=== PATIENT | female | born 2000 | race Caucasian/White ===

== ENCOUNTER 2023-01-20 11:12 | Emergency (ER) | payer SELFPAY ==
[~2023-01-20] VITALS: Ht 170.2 cm; Wt 131.5 kg
--- NOTE | 2023-01-20 12:07 | ED Lower Extremity ---
General Chief Complaint: Lower Extremity Stated Complaint: LEFT ANKLE INJ Nursing Triage Note: PT AMBULATE TO TRIAGE WITHOUT DIFFICULTY WITH C/O LEFT ANKLE PAIN. PT REPORTS SHE WAS WALKING OUT OF A BAR AND ROLLED HER ANKLE AND FELL. PT REPORTS TAKING NAPROXEN FOR PAIN. PT STATES SHE THINKS SHE SPRAINED HER LEFT ANKLE. Source: patient Exam Limitations: no limitations History of Present Illness Date Seen by Provider: Jan 20, 2023 Time Seen by Provider: 12:03 Past Huuzutp-[id number]-Xfiefn Hx Patient Social History Tobacco Use?: No Smoking Status: Never a Smoker Smokeless Tobacco Frequency: Never a User Use of E-Cig and/or Vaping dev: No Use of E-Cig and/or Vaping Jared: Never a User Substance use?: Yes Substance type: Marijuana Substance frequency: Once in a while Alcohol Use?: Yes Alcohol Frequency: Once in a while Pt feels they are or have been: No Physical Exam Vital Signs Vital Signs - First Documented 01/20/23 11:33 Temp 37.1 Pulse 97 Resp 18 B/P (MAP) 155/99 (117) O2 Delivery Room Air Capillary Refill : Less Than 3 Seconds Height, Weight, BMI Height: '" Weight: lbs. oz. kg; 45.00 BMI Method: Progress/Results/Core Measures Results/Orders My Orders Orders - NILAY SHELLEY MD Ankle, Left, 3 Views (01/20/23 12:03) Vital Signs/I&O 01/20/23 11:33 Temp 37.1 Pulse 97 Resp 18 B/P (MAP) 155/99 (117) O2 Delivery Room Air Blood Pressure Mean: 117 Diagnostic Imaging Diagonstic Imaging: Xray Plain Films/CT/US/NM/MRI: ankle Comments NAME: [facility] REC#: [id number] PT STATUS: REG ER : 2000 PHYSICIAN: NILAY SHELLEY MD ADMIT DATE: 01/20/23/ER Draft Date of Exam:01/20/23 ANKLE, LEFT, 3 VIEWS INDICATION: Left ankle pain after rolling ankle yesterday evening. TECHNIQUE: Three views of the left ankle CORRELATION STUDY: None FINDINGS: Question tiny avulsion fracture tip of the fibula. Osseous structures otherwise intact and unremarkable. Ankle mortise maintained. Rather extensive soft tissue edema. IMPRESSION: Suspect tiny avulsion fracture tip of the fibula with associated soft tissue swelling. Dictated on workstation # [id number] Dict: 01/20/23 1216 Trans: 01/20/23 1221 SEEMA [id number] Interpreted by: FAHAD FRANCO DO Departure Impression Primary Impression: Avulsion fracture of left ankle Qualified Codes: S82.892A - Other fracture of left lower leg, initial encounter for closed fracture Additional Impression: Left ankle sprain Qualified Codes: S93.402A - Sprain of unspecified ligament of left ankle, initial encounter Disposition: HOME, SELF-CARE Condition: Stable Departure-Patient Inst. Decision time for Depature: 13:08 Referrals: NO,LOCAL PHYSICIAN (PCP/Family) Primary Care Physician Patient Instructions: Ankle Sprain, Avulsion Fracture, How to Use Crutches Add. Discharge Instructions: Wear the boot as much as possible to protect your ankle. You may rest your foot on the floor but do not fully weight-bear to walk. Use crutches when walking. Follow-up with your primary care provider or an orthopedic surgeon next week for further evaluation. Do not fully weight-bear until you are cleared by your doctor in follow-up. Icing and 20-minute intervals, compression, and elevation should help with pain and swelling. You may use Tylenol (acetaminophen) up to 1000 mg every 6 hours as needed. Add ibuprofen up to 600 mg every 6 hours as needed for additional pain control. Return to care if you have worsening symptoms despite following these instructions. All discharge instructions reviewed with patient and/or family. Voiced understanding. Work/School Note: Work Release Form Date Seen in the Emergency Department: Jan 20, 2023 Return to Work: Jan 20, 2023 Other Restrictions Listed Below: Use crutches and boot. Do not fully weight-bear until released. NILAY SHELLEY MD Jan 20, 2023 12:07
--- NOTE | 2023-01-20 12:21 | Diagnostic Imaging Report ---
INDICATION: Left ankle pain after rolling ankle yesterday evening. TECHNIQUE: Three views of the left ankle CORRELATION STUDY: None FINDINGS: Question tiny avulsion fracture tip of the fibula. Osseous structures otherwise intact and unremarkable. Ankle mortise maintained. Rather extensive soft tissue edema. IMPRESSION: Suspect tiny avulsion fracture tip of the fibula with associated soft tissue swelling. Dictated by: Dictated on workstation # [id number]
[2023-01-20 13:17] VITALS: BP 151/86
== END 2023-01-20 13:17 | disposition home or self-care (01) ==
LOC: ER 11:21
DX: S82.892A Other fracture of left lower leg, initial encounter for closed fracture (principal); X50.1XXA Overexertion from prolonged static or awkward postures, initial encounter; W18.30XA Fall on same level, unspecified, initial encounter; Y93.01 Activity, walking, marching and hiking; Y92.838 Other recreation area as the place of occurrence of the external cause
CPT/HCPCS: 73610